=== PATIENT | female | born 1940 | race Caucasian/White ===

== ENCOUNTER → 2016-08-24 | Outpatient (CLI) | payer MEDICARE, OTHER | END | disposition disaster alternative care site (69) | LOC: GRAD 08-22 10:30 | DX: D47.2 Monoclonal gammopathy (principal); M81.8 Other osteoporosis without current pathological fracture; M41.9 Scoliosis, unspecified; M85.80 Other specified disorders of bone density and structure, unspecified site; Z98.890 Other specified postprocedural states; Z96.641 Presence of right artificial hip joint; Z96.642 Presence of left artificial hip joint ==